=== PATIENT | female | born 1975 | race African-American/Black ===

== ENCOUNTER 2019-11-07 08:49 | Day surgery (SDC) | payer OTHER ==
[2019-10-27 11:55] VITALS: BMI 49.2
[2019-11-07] MEDS ORDERED: fentaNYL CITRATE 250 MCG/5 ML VIAL ONE (08:52)
[2019-11-07] MEDS ORDERED: PROPOFOL 20 ML ONE ×2 (08:52)
[2019-11-07] MEDS ORDERED: DEXAMETHASONE SOD PHOSPHATE 4 MG/1 ML VIAL ONE ×2 (08:52→10:04)
[2019-11-07] MEDS ORDERED: ONDANSETRON 4 MG/2 ML VIAL ONE ×2 (08:52→12:26)
[2019-11-07] MEDS ORDERED: SUCCINYLCHOLINE CHLORIDE 200 MG/10 ML SYRINGE ONE (08:52)
[2019-11-07] MEDS ORDERED: MIDAZOLAM HCL 2 MG/2 ML SINGLE DOSE VIAL ONE ×2 (08:53)
[2019-11-07] MEDS ORDERED: ROCURONIUM BROMIDE 50 MG/5 ML SYRINGE ONE (08:53)
[2019-11-07] MEDS ORDERED: EPHEDRINE SULFATE/0.9% NACL/PF 50 MG/10 ML SYRINGE NR ONE (08:53)
[2019-11-07] MEDS ORDERED: ONDANSETRON 4 MG/2 ML VIAL IVPUSH PRN ×2 (09:18→12:04)
[2019-11-07] MEDS ORDERED: oxyCODONE HCL 5 MG TABLET PO PRN ×2 (09:18)
[2019-11-07] MEDS ORDERED: LACTATED RINGERS SOLUTION 1,000 ML IV SCH (09:30)
[2019-11-07] MEDS ORDERED: ceFAZolin SODIUM 1 GM VIAL ONE (09:33)
[2019-11-07] MEDS ORDERED: ACETAMINOPHEN INJECTION 100 ML IVPB ONE (09:33)
[2019-11-07] MEDS ORDERED: BUPIVACAINE HCL 0.25% 125 MG/50 ML VIAL ONE (09:43)
[2019-11-07] MEDS ORDERED: SCOPOLAMINE HYDROBROMIDE 1 PATCH PATCH.TD72 ONE (09:58)
[2019-11-07] MEDS ORDERED: BUPIVACAINE HCL/PF 0.5% (5 MG/ML) 30 ML VIAL IJ ONE (09:59)
[2019-11-07] MEDS ORDERED: GLYCOPYRROLATE 0.2 MG/1 ML VIAL ONE (10:55)
[2019-11-07] MEDS ORDERED: NEOSTIGMINE METHYLSULFATE 0.5 MG/ML - 10 ML MDV ONE (10:56)
[2019-11-07] MEDS ORDERED: BUPIVACAINE HCL/PF 0.25% (2.5MG/ML) 10 ML VIAL IJ ONE (12:00)
[2019-11-07] MEDS ORDERED: ENOXAPARIN NA (PORCINE) 40 MG/0.4 ML DISP.SYRIN SQ ONE ×2 (12:04→17:57)
--- NOTE | 2019-11-07 12:10 | OP ---
Operative Note - Note: Operative Date: 11/07/19 Pre-Operative Diagnosis: Morbid Obesity. Hypertension Operation: Gastrp Band for Gastric Restriction. Wedge Biopsy of left lobe of liver. Diagnostic Laparoscopy Findings: 30 cc gastric pouch created with APL Band Wedge biopsy performed on enlarged left lobe of liver Implants: gastric band (APL) + subcutaneous port Post-Operative Diagnosis: Same as Pre-op (Hepatomegaly) Surgeon: Alex Edgar Job Setter: Matt Camarena Anesthesia: General Specimens Removed: Wedge biopsy of left lobe of liver Estimated Blood Loss (mls): 30 Operative Report Dictated: Yes
[2019-11-07] MEDS ORDERED: SODIUM CHLORIDE 1,000 ML IV SCH (12:15)
[2019-11-07] MEDS ORDERED: FAMOTIDINE 20 MG/50 ML IVPB 20 MG/50 ML MG IVPB ONE (12:55)
[2019-11-07] MEDS ORDERED: FAMOTIDINE 20 MG PREMIXED IVPB IVPB ONE (13:00)
[2019-11-07 13:11] LABS: HEMATOCRIT 38.7 % (32.4-45.2); HEMOGLOBIN 12.4 GM/dl (10.7-15.3); MCH 26.2 pg (25.7-33.7); MCHC 32.1 g/dl (32.0-36.0); MEAN CELL VOLUME 81.7 fl (80-96); PLATELET COUNT 310 K/MM3 (134-434); RBC 4.74 M/mm3 (3.60-5.2); RDW 13.5 % (11.6-15.6); WHITE BLOOD COUNT 14.8 K/mm3 (4.0-10.8)
[2019-11-07 13:16] LABS: CALCIUM 8.5 mg/dl (8.5-10); CREATININE 0.8 mg/dl (0.55-1.3); POTASSIUM 4.7 mmol/L (3.5-5.1)
[2019-11-07] MEDS ORDERED: oxyCODONE HCL 5 MG TABLET ONE (14:13)
--- NOTE | 2019-11-07 16:39 | OP ---
DATE OF OPERATION: 11/07/2019 PREOPERATIVE DIAGNOSES: 1. Morbid obesity. 2. Hypertension. POSTOPERATIVE DIAGNOSES: 1. Morbid obesity. 2. Hypertension. 3. Hepatomegaly. PROCEDURES PERFORMED: 1. Gastric band for gastric restriction. 2. Wedge biopsy of the left lobe of the liver. 3. Diagnostic laparoscopy. OPERATING SURGEON: Alex Edgar MD WHEELMAN: Matt Camarena MD ANESTHESIA: General. EXPECTED BLOOD LOSS: 30 mL. DESCRIPTION OF PROCEDURE: The patient was brought into the operating room, placed on the OR table in a supine position. All precautions were taken initially including padding for the back and the feet, and Venodyne boots were placed on both lower extremities. At that point, the abdomen was prepped and draped in the usual manner. A Veress needle was placed in the left upper quadrant, and a pneumoperitoneum was established. Under direct vision, a No. 5 bladeless trocar was placed with an Optiview with the camera showing us guidance into the left upper quadrant. At that point, through that trocar a laparoscopic camera was placed with a 30-degrees scope. Under direct vision, a No. 15 bladeless trocar and No. 5 bladeless trocars were placed in the right upper quadrant and a No. 5 bladeless trocar below the left costal margin. A Paige liver retractor was then placed to the epigastrium to retract the left lobe of the liver. The patient was then placed in a 20-degree reverse Trendelenburg position by Anesthesia. The left lobe retractor had to be removed more laterally in order to get the left lobe of the liver out of the way so the left esophagogastric junction could be formed. As the operating surgeon retracted the omentum inferiorly, the accounts receivable assistant surgeon grabbed a superior portion of the fundus and pulled it to the patient's right side. This exposed the left esophagogastric junction. Electrocautery was used to score the peritoneum over the left esophagogastric junction, and this continued superiorly until the left gigi of the diaphragm was noted. At this point, because of the size of the liver, the liver retractor had to be moved now more medially toward the medial portion of the left lobe in order to show the lesser curvature side of stomach. The caudate lobe of the liver was noted, and the avascular plane was divided with hemoclips up proximal to the caudad lobe. At this point, the right gigi of the diaphragm was noted, and the peritoneum anterior to it was scored with electrocautery. Laparoscopic instrument was then used to make a blunt tunnel from the right to the left gigi until it was free in the left upper quadrant of the abdomen. The gastric band, which was an APL band was prepped by the OR team and placed in a No. 15 port site. Band tubing was placed into the laparoscopic instrument, which was pulled and withdrawn to the patient's right side. The band tubing was placed into the band buckle, which was tied or cinched down, and the band was rotated to the right side. Laparoscopic instrument easy fit between the band and the anterior stomach wall. The band was then sewn in place with the Endo Stitch, by the stomach as well as the above and below the band and tied up with a band. At this point, attention was now directed to the enlarged left lobe of the liver as the entire liver was enlarged. Electrocautery was then used to score the capsule over the liver and then the parenchyma and a wedge-shaped biopsy was taken on the inferior edge of the left lobe and sent off the field as a specimen to Pathology. The parenchyma had some minor oozing, which was easily controlled with electrocautery. At this juncture, the band tubing was brought through the No. 15 port site, and under direct vision, all trocars were removed, and pneumoperitoneum was released. The No. 15 port site was extended laterally, and dissection continued down to the right anterior rectus muscle fascia, 2-0 Prolene sutures were placed on all 4 sides, and the port was then attached to the right anterior rectus muscle fascia. At this point, all trocar sites received 0.25% Marcaine and were closed with 4-0 Biosyn in subcuticular fashion. The No. 15 trocar site was first closed with 3-0 Vicryl in the subcutaneous tissue followed by 4-0 Biosyn in subcuticular fascia. Dressings were applied. The patient was awoken from anesthesia and transferred out of the operating room to the recovery room in stable condition. Yancy [id number]
[2019-11-07] MEDS ORDERED: ENOXAPARIN NA (PORCINE) 40 MG/0.4 ML DISP.SYRIN SQ SCH (17:00)
[2019-11-07 18:29] VITALS: BP 110/70; PULSE 64; TEMP 98
[2019-11-07] MEDS ORDERED: FAMOTIDINE 20 MG/50 ML IVPB 20 MG/50 ML MG IVPB SCH (22:00)
--- NOTE | 2019-11-10 10:33 | PATH ---
Surgical Pathology Report Patient Name: TRINO DUPREE Med. Rec. #: [id number] /Age/Gender: 1975 (Age: 44) / F Account: [id number] Location: [facility] Taken: 11/07/2019 Received: 11/07/2019 Reported: 11/10/2019 Physicians: Alex Edgar M.D. Specimen(s) Received LIVER BIOPSY Clinical History Morbid obesity Final Diagnosis LIVER, BIOPSY: LIVER TISSUE WITH NO HISTOLOGIC EVIDENCE OF STEATOSIS. FOCAL PORTAL TRACTS SHOW MILD NON-SPECIFIC INFLAMMATORY INFILTRATE COMPRISED OF MAINLY LYMPHOCYTES WITH FEW SCATTERED PLASMA CELLS AND RARE NEUTROPHILS. NO INCREASE IN FIBROSIS (TRICHROME STAIN) OR IRON (IRON STAIN) DEPOSITION. Electronically Signed Phan Price M.D. Gross Description Received in formalin labeled "liver biopsy," is a 1.5 x 0.6 x 0.5 cm chaney-brown, cauterized portion of soft tissue, consistent with a liver biopsy. The specimen is bisected and entirely submitted in one cassette. /11/08/2019 [facility]/11/08/2019
== END 2019-11-07 18:29 | disposition home or self-care (01) ==
LOC: FASU 08:49
PROVIDERS: ATTEND Surgery
PROC: 0FB24ZX Excision of Left Lobe Liver, Percutaneous Endoscopic Approach, Diagnostic (ICD-10-PCS; 2019-11-07)
PROC: 0DV64CZ Restriction of Stomach with Extraluminal Device, Percutaneous Endoscopic Approach (ICD-10-PCS; principal; 2019-11-07 10:43)
DX: E66.01 Morbid (severe) obesity due to excess calories (principal); I10 Essential (primary) hypertension; R16.0 Hepatomegaly, not elsewhere classified; Z68.42 Body mass index [BMI] 45.0-49.9, adult
CPT/HCPCS: 36415; 74240-TC-FY; 80048; 82962; 84703; 85027; 94760; J0131